=== PATIENT | female | born 1935 | race Caucasian/White ===

== ENCOUNTER 2017-12-09 18:59 | Emergency (ER) | payer SELFPAY | END 2017-12-09 22:16 | disposition left against medical advice (07) | LOC: E/R 18:59 | DX: Z53.21 Procedure and treatment not carried out due to patient leaving prior to being seen by health care provider (principal) ==

== ENCOUNTER 2018-08-19 12:59 | Inpatient (IN) | payer OTHER ==
[2018-08-19 14:00] LABS: ADD MAN DIFF? NO
[2018-08-19 14:02] LABS: BASOPHIL # 0.1 10^3/ul (0.0-0.1); BASOPHILS % 0.6 % (0.0-2.0); EOSINOPHILS # 0.1 10^3/ul (0.0-0.5); EOSINOPHILS % 0.9 % (0.0-7.0); HEMATOCRIT 34.5 % (37.0-47.0); LYMPHOCYTES # 1.4 10^3/ul (0.8-2.9); MEAN CORPUSCULAR HEMOGLOBIN 28.5 pg (29.0-33.0); MEAN CORPUSCULAR HGB CONC 31.9 g/dl (32.0-37.0); MEAN CORPUSCULAR VOLUME 89.4 fl (82.0-101.0); MEAN PLATELET VOLUME 9.8 fl (7.4-10.4); MONOCYTE # 0.8 10^3/ul (0.3-0.9); NEUTROPHIL # 6.4 10^3/ul (1.6-7.5); PLATELET COUNT 259 10^3/UL (140-415); RED BLOOD COUNT 3.86 10^6/ul (4.20-5.40); RED CELL DISTRIBUTION WIDTH 12.7 % (11.5-14.5)
[2018-08-19 14:02] LABS: WHITE BLOOD COUNT 8.7 10^3/ul (4.8-10.8)
[2018-08-19] MEDS: KETOROLAC 15 MG INJ IV (14:12)
[2018-08-19] MEDS: ASPIRIN 81 MG TAB PO (14:13)
[2018-08-19 14:24] LABS: ALANINE AMINOTRANSFERASE 26 IU/L (13-69); ALBUMIN 4.4 g/dl (3.3-4.9); ALBUMIN/GLOBULIN RATIO 1.76; ALKALINE PHOSPHATASE 130 IU/L (42-121); ANION GAP 10 (5-13); ASPARTATE AMINO TRANSFERASE 22 IU/L (15-46); BILIRUBIN,INDIRECT 0.1 mg/dl (0-1.1); BILIRUBIN,TOTAL 0.1 mg/dl (0.2-1.3); BLOOD UREA NITROGEN 18 mg/dl (7-20); CALCIUM 9.5 mg/dl (8.4-10.2); CARBON DIOXIDE 28 mmol/L (21-31); CHLORIDE 98 mmol/L (97-110); CREATININE 0.59 mg/dl (0.44-1.00); GLUCOSE 107 mg/dl (70-220); LIPASE 148 U/L (23-300); POTASSIUM 4.6 mmol/L (3.5-5.1); SODIUM 136 mmol/L (135-144); TOTAL PROTEIN 6.9 g/dl (6.1-8.1)
[2018-08-19 14:35] LABS: B-TYPE NATRIURETIC PEPTIDE 196 PG/ML (0-450); TROPONIN-I < 0.012 ng/ml (0.000-0.120)
[2018-08-19] MEDS ORDERED: BISACODYL 10 MG SUPP PR (15:30)
[2018-08-19] MEDS ORDERED: ONDANSETRON 4 MG INJ IV (15:30)
[2018-08-19] MEDS ORDERED: NACL 0.9% 3 ML SYG IV (15:30)
[2018-08-19] MEDS ORDERED: ACETAMINOPHEN 325 MG TAB PO (15:30)
[2018-08-19] MEDS ORDERED: MAGNESIUM HYDROXIDE 30ML CUP PO (15:30)
[2018-08-19] MEDS ORDERED: morphine 2 MG INJ IV (15:30)
[2018-08-19] MEDS ORDERED: DOCUSATE SODIUM 100 MG CAP PO (15:30)
[2018-08-19] MEDS ORDERED: NITROGLYCERIN (SL) 0.4 MG TAB SL (15:30)
[2018-08-19] MEDS: GABAPENTIN 400 MG CAP PO ×2 (17:00→20:58)
[2018-08-19] MEDS: BACLOFEN 10 MG TAB PO ×2 (17:00→20:58)
[2018-08-19] MEDS: INSULIN ASPART [NOVOLOG] 3 ML PEN SC ×2 (18:00→21:00)
[2018-08-19 20:15] LABS: CREATINE KINASE 43 IU/L (23-200)
[2018-08-19 20:29] LABS: CK INDEX 2.3; CK-MB 1.01 ng/ml (0.0-2.4); TROPONIN-I < 0.012 ng/ml (0.000-0.120)
[2018-08-19] MEDS: FAMOTIDINE 20 MG TAB PO (20:58)
[2018-08-19] MEDS: ATORVASTATIN 20 MG TAB PO (20:58)
[2018-08-19] MEDS: ACCU-CHEK XX (21:04)
[2018-08-20 05:48] LABS: ADD MAN DIFF? NO
[2018-08-20 05:50] LABS: BASOPHIL # 0.1 10^3/ul (0.0-0.1); BASOPHILS % 0.9 % (0.0-2.0); EOSINOPHILS # 0.1 10^3/ul (0.0-0.5); EOSINOPHILS % 2.4 % (0.0-7.0); HEMATOCRIT 30.4 % (37.0-47.0); HEMOGLOBIN 9.9 g/dl (12.0-16.0); LYMPHOCYTES # 1.4 10^3/ul (0.8-2.9); LYMPHOCYTES % 26.9 % (15.0-51.0); MEAN CORPUSCULAR HEMOGLOBIN 28.6 pg (29.0-33.0); MEAN CORPUSCULAR HGB CONC 32.6 g/dl (32.0-37.0); MEAN CORPUSCULAR VOLUME 87.9 fl (82.0-101.0); MEAN PLATELET VOLUME 9.9 fl (7.4-10.4); MONOCYTE # 0.6 10^3/ul (0.3-0.9); MONOCYTES % 11.1 % (0.0-11.0); NEUTROPHIL # 3.1 10^3/ul (1.6-7.5); NEUTROPHILS % 58.1 % (39.0-77.0); PLATELET COUNT 206 10^3/UL (140-415); RED BLOOD COUNT 3.46 10^6/ul (4.20-5.40); RED CELL DISTRIBUTION WIDTH 12.9 % (11.5-14.5)
[2018-08-20 05:50] LABS: WHITE BLOOD COUNT 5.3 10^3/ul (4.8-10.8)
[2018-08-20 06:10] LABS: ALANINE AMINOTRANSFERASE 28 IU/L (13-69); ALBUMIN 3.5 g/dl (3.3-4.9); ALBUMIN/GLOBULIN RATIO 1.59; ALKALINE PHOSPHATASE 108 IU/L (42-121); ANION GAP 8 (5-13); ASPARTATE AMINO TRANSFERASE 18 IU/L (15-46); BILIRUBIN,INDIRECT 0.3 mg/dl (0-1.1); BILIRUBIN,TOTAL 0.3 mg/dl (0.2-1.3); BLOOD UREA NITROGEN 18 mg/dl (7-20); CALCIUM 8.8 mg/dl (8.4-10.2); CARBON DIOXIDE 26 mmol/L (21-31); CHLORIDE 100 mmol/L (97-110); GLUCOSE 85 mg/dl (70-220); MAGNESIUM 1.9 mg/dl (1.7-2.5); POTASSIUM 4.4 mmol/L (3.5-5.1); SODIUM 134 mmol/L (135-144); TOTAL PROTEIN 5.7 g/dl (6.1-8.1)
[2018-08-20 06:21] LABS: CHOL/HDL RATIO 1.8 RATIO; HDL CHOLESTEROL 60 mg/dl (33-92); LDL CHOLESTEROL,CALCULATED 41 mg/dl; TRIGLYCERIDES 59 mg/dl (0-149)
[2018-08-20 06:21] LABS: CHOLESTEROL 113 mg/dl (100-200)
[2018-08-20 06:30] LABS: FREE T4 (FREE THYROXINE) 2.26 ng/dl (0.85-1.93)
[2018-08-20 06:41] LABS: HEMOGLOBIN A1C 5.8 % (0-5.9)
[2018-08-20 06:46] LABS: THYROID STIMULATING HORMONE < 0.015 MIU/L (0.465-4.680)
[2018-08-20] MEDS: LEVOTHYROXINE 100 MCG TAB PO (06:49)
[2018-08-20] MEDS: INSULIN ASPART [NOVOLOG] 3 ML PEN SC ×2 (08:00→13:21)
[2018-08-20] MEDS: BACLOFEN 10 MG TAB PO ×2 (09:00→13:19)
[2018-08-20] MEDS: GABAPENTIN 400 MG CAP PO ×2 (09:00→13:18)
[2018-08-20] MEDS: REGADENOSON 0.4 MG/5 ML SYG (12:32)
[2018-08-20] MEDS: AMLODIPINE 10 MG TAB PO (13:18)
[2018-08-20] MEDS: ASPIRIN 81 MG TAB PO (13:18)
[2018-08-20] MEDS: FAMOTIDINE 20 MG TAB PO (13:18)
[2018-08-20] MEDS: FUROSEMIDE 20 MG TAB PO (13:19)
[2018-08-20] MEDS: ESCITALOPRAM 10 MG TAB PO (13:19)
[2018-08-20] MEDS: ISOSORBIDE MONONITRATE(SR)30 MG TAB PO (13:20)
[2018-08-20] MEDS: ENOXAPARIN 40 MG/0.4 ML SYG SC (13:34)
[2018-08-21] MEDS ORDERED: LEVOTHYROXINE 100 MCG TAB PO (07:00)
== END 2018-08-20 16:03 | disposition home or self-care (01) | DRG 303 ==
LOC: E/R 12:59 → 6WM 14:47
DX: I25.119 Atherosclerotic heart disease of native coronary artery with unspecified angina pectoris (principal); I11.0 Hypertensive heart disease with heart failure; I50.9 Heart failure, unspecified; E11.9 Type 2 diabetes mellitus without complications; I25.5 Ischemic cardiomyopathy; E03.9 Hypothyroidism, unspecified; E78.5 Hyperlipidemia, unspecified; F32.9 Major depressive disorder, single episode, unspecified; G89.29 Other chronic pain; Z87.891 Personal history of nicotine dependence; Z79.4 Long term (current) use of insulin; Z79.82 Long term (current) use of aspirin; Z95.5 Presence of coronary angioplasty implant and graft
CPT/HCPCS: 71045; 78452; 80053; 80061; 82550; 82553; 82962; 83036; 83690; 83735; 83880; 84439; 84443; 84484; 85025; 93005; 93017; 93306; 96374; 99285-25

== ENCOUNTER 2018-12-30 17:29 | Inpatient (IN) | payer OTHER ==
[2018-12-30 17:40] LABS: ADD MAN DIFF? NO
[2018-12-30 17:46] LABS: WHITE BLOOD COUNT 6.5 10^3/ul (4.8-10.8)
[2018-12-30 17:46] LABS: BASOPHILS % 0.5 % (0.0-2.0); EOSINOPHILS # 0.1 10^3/ul (0.0-0.5); EOSINOPHILS % 1.1 % (0.0-7.0); HEMATOCRIT 31.4 % (37.0-47.0); HEMOGLOBIN 10.1 g/dl (12.0-16.0); LYMPHOCYTES # 1.2 10^3/ul (0.8-2.9); LYMPHOCYTES % 18.5 % (15.0-51.0); MEAN CORPUSCULAR HEMOGLOBIN 28.1 pg (29.0-33.0); MEAN CORPUSCULAR HGB CONC 32.2 g/dl (32.0-37.0); MEAN CORPUSCULAR VOLUME 87.2 fl (82.0-101.0); MEAN PLATELET VOLUME 9.8 fl (7.4-10.4); MONOCYTE # 0.5 10^3/ul (0.3-0.9); MONOCYTES % 8.2 % (0.0-11.0); NEUTROPHIL # 4.7 10^3/ul (1.6-7.5); NEUTROPHILS % 71.5 % (39.0-77.0); PLATELET COUNT 226 10^3/UL (140-415); RED CELL DISTRIBUTION WIDTH 13.2 % (11.5-14.5)
[2018-12-30] MEDS: SOD CHLORIDE 0.9% 100 ML (17:47)
[2018-12-30] MEDS: IODIXANOL LOCM 100 ML BTL (17:47)
[2018-12-30 18:04] LABS: ALANINE AMINOTRANSFERASE 17 IU/L (13-69); ALBUMIN/GLOBULIN RATIO 1.53; ALKALINE PHOSPHATASE 131 IU/L (42-121); ANION GAP 7 (5-13); ASPARTATE AMINO TRANSFERASE 24 IU/L (15-46); BILIRUBIN,INDIRECT 0.2 mg/dl (0-1.1); BILIRUBIN,TOTAL 0.2 mg/dl (0.2-1.3); BLOOD UREA NITROGEN 14 mg/dl (7-20); CALCIUM 9.3 mg/dl (8.4-10.2); CARBON DIOXIDE 24 mmol/L (21-31); CHLORIDE 98 mmol/L (97-110); CHOL/HDL RATIO 1.6 RATIO; CHOLESTEROL 139 mg/dl (100-200); CREATINE KINASE 111 IU/L (23-200); CREATININE 0.54 mg/dl (0.44-1.00); GLUCOSE 129 mg/dl (70-220); HDL CHOLESTEROL 82 mg/dl (33-92); LDL CHOLESTEROL,CALCULATED 45 mg/dl; POTASSIUM 4.3 mmol/L (3.5-5.1); SODIUM 129 mmol/L (135-144); TOTAL PROTEIN 6.6 g/dl (6.1-8.1); TRIGLYCERIDES 59 mg/dl (0-149)
[2018-12-30] MEDS: SOD CHLORIDE 0.9% 500 ML IV (18:05)
[2018-12-30 18:06] LABS: INR 1.01; PROTIME 13.4 Sec (11.9-14.9)
[2018-12-30] MEDS: ASPIRIN 300 MG SUPP PR (18:06)
[2018-12-30 18:07] LABS: HEMOGLOBIN A1C 6.1 % (0-5.9)
[2018-12-30 18:10] LABS: ETHANOL < 10.0 mg/dl (0-0)
[2018-12-30 18:15] LABS: CK-MB 2.18 ng/ml (0.0-2.4); TROPONIN-I < 0.012 ng/ml (0.000-0.120)
[2018-12-30 18:53] LABS: ADD UMIC NO; UR ASCORBIC ACID NEGATIVE (NEGATIVE); UR BILIRUBIN (Dip) NEGATIVE (NEGATIVE); UR BLOOD (Dip) NEGATIVE (NEGATIVE); UR CLARITY CLEAR (CLEAR); UR COLOR STRAW (YELLOW); UR GLUCOSE (Dip) NEGATIVE (NEGATIVE); UR KETONES (Dip) TRACE mg/dL (NEGATIVE); UR LEUKOCYTE ESTERASE (Dip) NEGATIVE Leu/ul (NEGATIVE); UR NITRITE (Dip) NEGATIVE (NEGATIVE); UR SPECIFIC GRAVITY (Dip) 1.021 (1.003-1.030); UR TOTAL PROTEIN (Dip) NEGATIVE (NEGATIVE); UR UROBILINOGEN (Dip) NEGATIVE (NEGATIVE)
[2018-12-30] MEDS: hydrALAzine 20 MG INJ IV (19:07)
[2018-12-30 19:08] LABS: AADO2 Arterial 6.8 mmHg (7.0-24.0); Allen Test ACCEPTAB; Arterial Base Excess 0.1 mmol/L (-3.0-3); Arterial Blood Gas Oxygen Sat 98.4 mmHG (95.0-100.0); Arterial COHb 0.3 % (0.0-3.0); Arterial Fraction of Oxyhgb 97.9 % (93.0-99.0); Arterial HCO3 24.9 mmol/L (22.0-26.0); Arterial MetHb 0.2 % (0.0-1.5); Arterial pCO2 41.1 mmhg (35-45); MODE NASAL CANNULA
[2018-12-30] MEDS: SOD CHLORIDE 0.9% 1,000 ML IV (19:08)
[2018-12-30 19:17] LABS: AMPHETAMINE/METHAMPHETAMINE Negative (NEGATIVE); BARBITURATES Negative (NEGATIVE); BENZODIAZEPINES Negative (NEGATIVE); CANNABINOIDS Negative (NEGATIVE); COCAINE Negative (NEGATIVE); OPIATES Negative (NEGATIVE)
[2018-12-30] MEDS ORDERED: ONDANSETRON 4 MG INJ IV (20:00)
[2018-12-30] MEDS ORDERED: GLUCOSE GEL 15 GRAM TUBE PO ×2 (20:30)
[2018-12-30] MEDS ORDERED: GLUCAGON 1 MG INJ IM (20:30)
[2018-12-30] MEDS ORDERED: GLUCOSE GEL 15 GRAM TUBE BUCCAL (20:30)
[2018-12-30] MEDS ORDERED: DEXTROSE 50% 50 ML SYRINGE IV ×2 (20:30)
[2018-12-30] MEDS ORDERED: ACETAMINOPHEN 650 MG SUPP PR (23:30)
[2018-12-31] MEDS: SOD CHLORIDE 0.9% 1,000 ML IV (00:15)
[2018-12-31] MEDS: ACCU-CHEK XX (02:00)
[2018-12-31 05:11] LABS: ADD MAN DIFF? NO
[2018-12-31 05:14] LABS: BASOPHILS % 0.4 % (0.0-2.0); EOSINOPHILS # 0.1 10^3/ul (0.0-0.5); EOSINOPHILS % 1.4 % (0.0-7.0); HEMATOCRIT 30.6 % (37.0-47.0); HEMOGLOBIN 9.9 g/dl (12.0-16.0); LYMPHOCYTES # 0.9 10^3/ul (0.8-2.9); LYMPHOCYTES % 15.8 % (15.0-51.0); MEAN CORPUSCULAR HEMOGLOBIN 28.4 pg (29.0-33.0); MEAN CORPUSCULAR HGB CONC 32.4 g/dl (32.0-37.0); MEAN CORPUSCULAR VOLUME 87.7 fl (82.0-101.0); MEAN PLATELET VOLUME 10.3 fl (7.4-10.4); MONOCYTE # 0.6 10^3/ul (0.3-0.9); MONOCYTES % 9.8 % (0.0-11.0); NEUTROPHIL # 4.1 10^3/ul (1.6-7.5); NEUTROPHILS % 72.2 % (39.0-77.0); PLATELET COUNT 214 10^3/UL (140-415); RED BLOOD COUNT 3.49 10^6/ul (4.20-5.40); RED CELL DISTRIBUTION WIDTH 13.6 % (11.5-14.5)
[2018-12-31 05:14] LABS: WHITE BLOOD COUNT 5.7 10^3/ul (4.8-10.8)
[2018-12-31] MEDS: LEVOTHYROXINE 100 MCG TAB PO (05:44)
[2018-12-31 05:49] LABS: ANION GAP 8 (5-13); BLOOD UREA NITROGEN 10 mg/dl (7-20); CALCIUM 8.9 mg/dl (8.4-10.2); CARBON DIOXIDE 26 mmol/L (21-31); CHLORIDE 103 mmol/L (97-110); CHOL/HDL RATIO 1.8 RATIO; CHOLESTEROL 128 mg/dl (100-200); CREATININE 0.43 mg/dl (0.44-1.00); GLUCOSE 95 mg/dl (70-220); HDL CHOLESTEROL 69 mg/dl (33-92); LDL CHOLESTEROL,CALCULATED 45 mg/dl; POTASSIUM 3.9 mmol/L (3.5-5.1); SODIUM 137 mmol/L (135-144); TRIGLYCERIDES 68 mg/dl (0-149)
[2018-12-31] MEDS: INSULIN ASPART [NOVOLOG] 3 ML PEN SC ×3 (07:35→17:27)
[2018-12-31] MEDS ORDERED: LEVOTHYROXINE 100 MCG TAB PO (09:30)
[2018-12-31] MEDS: LISINOPRIL 10 MG TAB PO ×2 (13:26→21:18)
[2018-12-31] MEDS: ASPIRIN 325 MG TAB GTB (13:26)
[2018-12-31] MEDS: FUROSEMIDE 20 MG TAB PO (13:31)
[2018-12-31] MEDS: morphine 2 MG INJ IV ×2 (17:28→21:49)
[2018-12-31] MEDS: hydrALAzine 20 MG INJ IV ×2 (18:50→19:44)
[2019-01-01] MEDS: ACCU-CHEK XX (01:05)
[2019-01-01] MEDS: morphine 2 MG INJ IV (03:53)
[2019-01-01] MEDS: LEVOTHYROXINE 100 MCG TAB PO (06:02)
[2019-01-01] MEDS: INSULIN ASPART [NOVOLOG] 3 ML PEN SC (07:54)
[2019-01-01] MEDS: ASPIRIN 325 MG TAB PO (09:22)
[2019-01-01] MEDS: LISINOPRIL 10 MG TAB PO (09:23)
[2019-01-01] MEDS: FUROSEMIDE 20 MG TAB PO (09:24)
[2019-01-01] MEDS ORDERED: traMADol 50 MG TAB PO (11:30)
[2019-01-01] MEDS: ACETAMINOPHEN 325 MG TAB PO (15:41)
[2019-01-02] MEDS ORDERED: glipiZIDE 5 MG TAB PO (07:00)
== END 2019-01-01 17:30 | disposition home or self-care (01) | DRG 69 ==
LOC: ICU 12-31 06:35 → 6WM 01-01 03:36 → E/R 17:29 → ICU 18:47
DX: G45.9 Transient cerebral ischemic attack, unspecified (principal); E87.1 Hypo-osmolality and hyponatremia; E11.9 Type 2 diabetes mellitus without complications; I10 Essential (primary) hypertension; E03.9 Hypothyroidism, unspecified; I25.10 Atherosclerotic heart disease of native coronary artery without angina pectoris; Z95.5 Presence of coronary angioplasty implant and graft; M47.897 Other spondylosis, lumbosacral region; R47.1 Dysarthria and anarthria; R53.1 Weakness; M16.10 Unilateral primary osteoarthritis, unspecified hip; M19.032 Primary osteoarthritis, left wrist; M19.031 Primary osteoarthritis, right wrist
CPT/HCPCS: 36415; 36600; 70450; 70496; 70498; 70551; 71045; 80048; 80053; 80061; 80307; 81003; 82550; 82553; 82803; 82962; 83036; 84484; 85025; 85610; 85730; 87081; 92523; 92610; 93005; 93306; 93880; 96360; 97116; 97162; 97530; 99291-25